=== PATIENT | female | born 1995 ===

== ENCOUNTER 2018-05-23 19:56 | Emergency (ER) | payer BC ==
--- NOTE | 2018-05-23 20:19 | UC ---
Complaint Female HPI - HPI Summary HPI Summary: 22 yo female presents with mild LLQ pain for the last 3 days - worse with movement. She tells me that this pain developed suddenly 3 days ago and has not gotten any better or worse since that time. Also, 3-4 days ago she began to have some vaginal bleeding, which is abnormal for her as she usually does not get her menses due to her depo shot. She is not currently sexually active. Denies fever, chills, SOB, chest pain, n/v/d/c, dysuria, vaginal discharge, or concern for STDs. She has no hx of ovarian cysts or uterine issues, but was talking to one of her friends who suggested she may have an ovarian cyst. - History Of Current Complaint Chief Complaint: UCAbdominalPain Stated Complaint: ABDOMINAL PAIN Time Seen by Provider: 05/23/18 20:16 Hx Obtained From: Patient Hx Last Menstrual Period: DEPOPROVERA Onset/Duration: Sudden Onset Severity Initially: Mild Severity Currently: Mild Pain Intensity: 1 Pain Scale Used: 0-10 Numeric - Allergies/Home Medications Allergies/Adverse Reactions: Allergies Allergy/AdvReac Type Severity Reaction Status Date / Time No Known Allergies Allergy Verified 05/23/18 20:06 Home Medications: Home Medications Naproxen TAB* [Naprosyn 250 mg TAB*] 500 mg PO ONCE PRN 05/23/18 [History Confirmed 05/23/18] medroxyPROGESTERone ACETATE* [DEPO-Provera*] 05/23/18 [History] PMH/Surg Hx/FS Hx/Imm Hx - Additional Past Medical History Additional PMH: None - Surgical History Surgical History: Yes Surgery Procedure, Year, and Place: BILAT MYRINGOTOMY - Family History Known Family History: Positive: None - Social History Occupation: Student Lives: Dormitory/Roommates Alcohol Use: None Substance Use Type: None Smoking Status (MU): Never Smoked Tobacco Review of Systems Constitutional: Negative Skin: Negative Respiratory: Negative Cardiovascular: Negative Gastrointestinal: Abdominal Pain Genitourinary: Negative Neurovascular: Negative Neurological: Negative Psychological: Negative All Other Systems Reviewed And Are Negative: Yes Physical Exam - Summary Physical Exam Summary: GENERAL: NAD. WDWN. No pain distress. SKIN: No rashes, sores, lesions, or open wounds. NECK: Supple. Nontender. No lymphadenopathy. CHEST: CTAB. No r/r/w. No accessory muscle use. Breathing comfortably and in no distress. CV: RRR. Without m/r/g. Pulses intact. Cap refill <2seconds ABDOMEN: Mild LLQ pain overlying left ovary. Soft. No distention or guarding. No CVA tenderness. Bowel sounds present NEURO: Alert. PSYCH: Age appropriate behavior. Triage Information Reviewed: Yes Vital Signs: Initial Vital Signs Temp 97.6 F 05/23/18 20:04 Pulse 58 05/23/18 20:04 Resp 16 05/23/18 20:04 BP 115/70 05/23/18 20:04 Pulse Ox 98 05/23/18 20:04 Laboratory Tests 05/23/18 20:27 POC Urine Color Yellow POC Urine Clarity Slightly cloudy POC Urine pH 7.5 POC Ur Specif [place] 1.015 POC Urine Protein Negative POC Ur Glucose (UA) Negative POC Urine Ketones Negative POC Urine Blood 2+ A POC Urine Nitrite Negative POC Urine Bilirubin Negative POC Urine Urobilinogen 0.2 POC U Leukocyte Esteras Negative Vital Signs Reviewed: Yes Complaint Female Dx - Course Course Of Treatment: POC was negative. Discussed with the pt the possibility of an ovarian cyst or other pathology and informed her that there is no US available this evening. I let her know that she [facility], but she would prefer to come here. She elected to defer pelvic exam and return to the tomorrow for a transvaginal US and further direction from there. Agreed to go the ED if symptoms worsen. - Differential Dx/Diagnosis Provider Diagnoses: LLQ pain. Abnormal vaginal bleeding Discharge - Sign-Out/Discharge Documenting (check all that apply): Patient Departure All imaging exams completed and their final reports reviewed: No Studies - Discharge Plan Condition: Stable Disposition: HOME Patient Education Materials: Ovarian Cyst (ED) Referrals: No Primary Care Phys,NOPCP [Primary Care Provider] - Additional Instructions: If you develop a fever, shortness of breath, chest pain, new or worsening symptoms - please call your PCP or go to the ED. - Billing Disposition and Condition Condition: STABLE Disposition: Home
== END 2018-05-23 20:50 | disposition home or self-care (01) ==
LOC: UCEAST 19:56
DX: R10.32 Left lower quadrant pain (principal); N93.9 Abnormal uterine and vaginal bleeding, unspecified; Z32.02 Encounter for pregnancy test, result negative
CPT/HCPCS: 81003; 81025; 99201; G0463